=== PATIENT | female | born 1990 | race Caucasian/White ===

== ENCOUNTER → 2023-08-27 06:45 | Outpatient (REF) | payer BC, SELFPAY | LOC: EMG 06:45 | PROVIDERS: ATTENDING PHYSICIAN Physician Assistant Surgical; FAMILY PHYSICIAN Family Medicine | DX: R20.0 Anesthesia of skin (principal) | CPT/HCPCS: 95886; 95911 ==

== ENCOUNTER → 2024-03-06 06:34 | Outpatient (REF) | payer BC, SELFPAY ==
[2024-03-06 06:59] LABS: % Basophils 0.6 % (0-2); % Eosinophils 3.9 % (0-6); % Immature Granulocytes 0.1 % (0-0.5); % Lymphocytes 33.1 % (20.5-51.1); % Monocytes 7.7 % (1.7-9.3); % Neutrophils 54.6 % (42.2-75.2); Absolute Eosinophils 0.3 10^3/uL (0-0.7); Absolute Lymphocytes 2.4 10^3/uL (1.2-3.4); Absolute Monocytes 0.6 10^3/uL (0.1-0.6); Absolute Neutrophils 3.9 10^3/uL (1.4-6.5); Hematocrit 38.1 % (37.0-47.0); Hemoglobin 12.7 g/dL (12.0-16.0); Mean Corp Hgb Conc. 33.3 g/dL (33.0-37.0); Mean Corpuscular Hgb 31.2 pg (27.0-31.0); Mean Corpuscular Volume 93.6 fL (81.0-99.0); Mean Platelet Volume 10.5 fL (7.4-10.4); Nucleated Red Blood Cells % 0 %; Platelet Count 251 10^3/uL (130-400); Red Blood Cell Count 4.07 10^6/uL (4.20-5.40); Red Cell Dist. Width 12.3 % (11.5-14.5); White Blood Cell Count 7.1 10^3/uL (4.8-10.8)
[2024-03-06 07:28] LABS: ALT (SGPT) 14 U/L (0-35); AST (SGOT) 20 U/L (14-36); Alkaline Phosphatase 67 U/L (38-126); Blood Urea Nitrogen 9 mg/dl (7-17); Calcium 9.2 mg/dl (8.4-10.2); Carbon Dioxide 27 mmol/L (22-30); Chloride 105 mmol/L (98-107); Direct Bilirubin 0.2 mg/dl (0.0-0.4); Glucose 93 mg/dl (70-99); Iron 81 ug/dl (37-170); Potassium 4.3 mmol/L (3.5-5.1); Sodium 136 mmol/L (135-145); Total Bilirubin 0.4 mg/dl (0.2-1.3); Total Protein 7.1 g/dl (6.3-8.2); eGFR > 60.00
[2024-03-06 07:38] LABS: Percent Saturation 29 % (20-50); Total Iron Binding Capacity 278 ug/dl (265-497)
[2024-03-06 07:52] LABS: Erythrocyte Sed Rate 19 mm/hour (0-20)
[2024-03-06 08:35] LABS: Folate 10.1 ng/ml (2.76-20); Vitamin B12 600 pg/ml (239-931)
[2024-03-06 10:15] LABS: Vitamin D, 25-OH*** < 12.8 ng/mL (30-80)
[2024-03-06 20:19] LABS: Hepatitis B Surface Antigen Negative (Negative)
[2024-03-06 20:37] LABS: Hepatitis B Core Ab, Total Negative (Negative); Hepatitis B Surface Antibody Negative
[2024-03-08 18:50] LABS: Quantiferon Mitogen minus NIL 9.59 IU/mL; Quantiferon NIL 0.03 IU/mL; Quantiferon TB Gold Plus Negative (Negative)
== END ==
LOC: REG 06:34
PROVIDERS: ATTENDING PHYSICIAN Nurse Practitioner Family
DX: K50.00 Crohn's disease of small intestine without complications (principal)
CPT/HCPCS: 36415; 80048; 80076; 82306; 82607; 82728; 82746; 83540; 83550; 85025; 85652; 86140; 86480; 86704; 86706; 87340

== ENCOUNTER → 2024-04-07 13:50 | Outpatient (REF) | payer BC, SELFPAY | LOC: PAVMRI 13:50 | PROVIDERS: ATTENDING PHYSICIAN Nurse Practitioner Family | DX: K50.00 Crohn's disease of small intestine without complications (principal) | CPT/HCPCS: 74183; A9575 ==

== ENCOUNTER → 2024-06-06 06:26 | Outpatient (REF) | payer BC, SELFPAY | LOC: REG 06:26 | PROVIDERS: ATTENDING PHYSICIAN Nurse Practitioner Family; FAMILY PHYSICIAN Internal Medicine Gastroenterology | DX: K50.00 Crohn's disease of small intestine without complications (principal) | CPT/HCPCS: 83993 ==

== ENCOUNTER → 2024-06-30 06:16 | Day surgery (SDC) | payer BC, SELFPAY | LOC: GI 06:16 | PROVIDERS: ATTENDING PHYSICIAN Internal Medicine Gastroenterology | DX: K64.8 Other hemorrhoids (principal); K63.5 Polyp of colon; K50.819 Crohn's disease of both small and large intestine with unspecified complications | CPT/HCPCS: 45380; 88305 ==

== ENCOUNTER 2024-12-23 09:25 | Emergency (ER) | payer BC, SELFPAY ==
[2024-12-23 09:32] VITALS: BP 137/88
[2024-12-23 10:34] VITALS: BMI 35.9
--- NOTE | 2024-12-23 10:43 | ED.GENMED ---
History of Present Illness
General
Chief Complaint: Urinary Symptoms
Time Seen by Provider: 12/23/24 10:07
History of Present Illness
History of Present Illness:
Patient is a 34-year-old woman with history of kidney stone presenting to the emergency department urinary symptoms. She states that last night she had some pelvic pain and some dysuria. This morning she had some hematuria and noticed a small
clot. No vaginal bleeding or discharge. She has never had bleeding with her prior kidney stones but has had kidney stones as well as multiple urine infections. No lightheadedness dizziness. No back pain. No history of malignancy.
Past History
Past History
ED Past Medical History: GERD, Psychiatric (History of anxiety), Other (Kidney stones) and Other (History of Crohn's disease)
ED Past Surgical History: None
Social History
Tobacco: Former smoker
Alcohol: None
Drug: None
Personal:
Living: with family
Employment: Employed
Family History
Family History: Hypertension
Phy Exam
Physical Exam
Physical Exam:
GENERAL: in no acute distress
HEENT: normocephalic, extraocular movements intact, moist oral mucosa
NECK: normal inspection
RESPIRATORY: no respiratory distress, clear to auscultation bilaterally
CARDIOVASCULAR: regular rate and rhythm
ABDOMEN/: soft, non-distended, suprapubic tenderness, no rebound or guarding
EXTREMITIES: non-tender, no edema/swelling
NEUROLOGIC: awake and alert, moves all extremities
SKIN: warm
Course
Orders/Labs/Results
Orders:
Orders
12/23/24 10:37
UA Reflex to Culture [Urinalysis Reflex To Culture] Urgent
Date Specimen was Collected: 12/23/24
Time Specimen was Collected: 10:36
Urine Microscopic Reflex Cult Urgent
Urine Culture Urgent
LUANN Source: U
Specimen Description:
Date Specimen was Collected: 12/23/24
Time Specimen was Collected: 10:36
12/23/24 10:43
CT Abd/pelvis W Iv Cont Urgent
Comment:
Reason For Exam: hematuria
Ketorolac [Toradol] 15 mg IV NOW STA
Test Result ONCE
12/23/24 11:23
Basic Metabolic Panel Urgent
Complete Blood Count/With Diff Urgent
HCG, Serum Qualitative Screen Urgent
12/23/24 13:46
Nitrofurantoin Monohydrate [Macrobid] 100 mg PO NOW STA
Abnormal Lab Results
12/23/24 12/23/24
10:37 11:23
RBC 3.93 L 10^6/uL
(4.20-5.40)
Hct 36.2 L %
(37.0-47.0)
MCH 31.3 H pg
(27.0-31.0)
Absolute Neuts (auto) 6.7 H 10^3/uL
(1.4-6.5)
Lymphocytes % 20.3 L %
(20.5-51.1)
Ur Occult Blood Reflex 4+ A
(Negative)
Leukocyte Esterase Rfl 2+ A
(Negative)
Urine RBC 30-40 A /HPF
(0-2)
Urine WBC (Reflex) 30-40 A /HPF
(0-5)
Urine Bacteria (Reflex) Moderate A
(Negative)
Urine Albumin (Reflex) 1+ A
(Neg - Trace)
12/23/24 11:23
12/23/24 11:23
Vital Signs
Initial and Last Documented VS:
Initial Vital Signs
Temp Pulse Resp BP Pulse Ox
98.0 F 85 18 137/88 100
12/23/24 09:32 12/23/24 09:32 12/23/24 09:32 12/23/24 09:32 12/23/24 09:32
Last Documented Vital Signs
Temp Pulse Resp BP Pulse Ox
98.0 F 71 18 129/83 97
12/23/24 09:32 12/23/24 12:00 12/23/24 12:00 12/23/24 12:00 12/23/24 12:00
MDM/Problems Addressed
Differential Diagnosis Includes:
Patient is a 34-year-old female presenting to the emergency department with hematuria and pelvic pain. Vitals are well and exam does show suprapubic tenderness to palpation. Differential is broad but consists of kidney stone versus urine infection
versus mass. Will obtain blood work urine sample as well as CT scan. Will give Toradol and reassess.
*Critical Care Note
Total Time (30-74mins, 75-104mins- exclusive of procedures): Not Applicable
Update Note
Update Note:
On reevaluation patient is resting comfortably. Bladder scan was 20. She is able to urinate without any difficulty here. CT scan per my interpretation with no obvious stone. Per the official read there is no obstructive uropathy but she does have
few small renal cysts. Urine does appear contaminated. However given the patient has been having ongoing symptoms with prior urine infections we will treat with Macrobid. Strict return precautions given. Will discharge at this time.
ED Attending Note
-
Portions of this chart may have been created with voice recognition software.� Occasional wrong word or��sound alike� substitutions may have occurred due to the inherent limitations of voice recognition software.
Discharge Plan
Departure
Patient Disposition: Home (Routine Discharge)
Date of Disposition: 12/23/24
Time of Disposition: 13:45
Patient with high blood pressure during this ER visit?: No
Discharge Problem:
UTI (urinary tract infection)
Instructions: Urinary Tract Infection, Adult (DC)
Prescriptions:
New
nitrofurantoin monohyd/m-cryst [Macrobid] 100 mg capsule
100 mg PO Q12H 5 Days Qty: 10 0RF
No Action
pantoprazole 40 MG tablet,delayed release (DR/EC)
40 mg PO DAILY
cyanocobalamin (vitamin B-12) 1,000 MCG capsule
1,000 mcg PO DAILY
ondansetron 4 MG tablet,disintegrating
4 mg PO TIDPRN PRN (Reason: nausea) Qty: 15 0RF
acetaminophen [Tylenol] 325 mg Tablet
650 mg PO Q6H PRN (Reason: pain)
acetaminophen-codeine 300-30 mg Tablet
1 tab PO Q8H PRN (Reason: pain)
budesonide 3 mg Capsule,Delayed,Extend.Release
3 mg PO DAILY
Referrals:
Olvin Jc MD [Active] -
More Kwon MD [Family Provider] -
Activity Restrictions/Additional Instructions:
You were seen in the Emergency Department today for possible urine infection. We did start you on antibiotics. Please start taking the antibiotics tomorrow morning as we did give you your first dose today. Please follow-up with urology. If you
notice you are having worsening pain or difficulty peeing or have not urinated in more than 8 hours please immediately come back to the emergency department.
We would like for you to follow up with your primary care physician for further evaluation. If you experience fever, worsening of your symptoms, or develop any other new or concerning symptoms, please return to the Emergency Department immediately.
Please see the attached sheet for additional information.
Interventions
Interventions:
*General Assessment Last Done: 12/23/24 10:35
*Neglect/Abuse Screening Last Done: 12/23/24 10:35
ED- Fall Risk Assessment Last Done: 12/23/24 13:03
*ED COVID-19 Vaccine History Last Done: 12/23/24 10:35
ED-Female Genitourinary Assessment Last Done: 12/23/24 13:03
Discharge Date and Time
Print Language: [id number]
[2024-12-23 11:13] LABS: Urine Albumin 1+ (Neg - Trace); Urine Bilirubin Negative (Negative); Urine Character Clear (Clear); Urine Color Yellow; Urine Glucose Negative (Negative); Urine Ketone Negative (Negative); Urine Leukocyte 2+ (Negative); Urine Nitrite Negative (Negative); Urine Occult Blood 4+ (Negative); Urine Specific Gravity 1.005 (<1.030); Urine Urobilinogen Negative (Neg - 1+); Urine pH 6.5 (5.0-9.0)
[2024-12-23] MEDS: TORADOL 15 MG IV (11:28)
[2024-12-23 11:39] LABS: % Basophils 0.4 % (0-2); % Eosinophils 2.1 % (0-6); % Immature Granulocytes 0.3 % (0-0.5); % Lymphocytes 20.3 % (20.5-51.1); % Monocytes 4.8 % (1.7-9.3); % Neutrophils 72.1 % (42.2-75.2); Absolute Eosinophils 0.2 10^3/uL (0-0.7); Absolute Lymphocytes 1.9 10^3/uL (1.2-3.4); Absolute Monocytes 0.4 10^3/uL (0.1-0.6); Absolute Neutrophils 6.7 10^3/uL (1.4-6.5); Hematocrit 36.2 % (37.0-47.0); Hemoglobin 12.3 g/dL (12.0-16.0); Mean Corpuscular Hgb 31.3 pg (27.0-31.0); Mean Corpuscular Volume 92.1 fL (81.0-99.0); Nucleated Red Blood Cells % 0 %; Platelet Count 244 10^3/uL (130-400); Red Blood Cell Count 3.93 10^6/uL (4.20-5.40); Red Cell Dist. Width 12.4 % (11.5-14.5); White Blood Cell Count 9.3 10^3/uL (4.8-10.8)
[2024-12-23 11:49] LABS: HCG, Serum Qualitative Screen Negative
[2024-12-23 11:52] LABS: Blood Urea Nitrogen 9 mg/dl (7-17); Calcium 8.9 mg/dl (8.4-10.2); Carbon Dioxide 28 mmol/L (22-30); Chloride 104 mmol/L (98-107); Estimated Creatinine Clearance > 125 ml/min; Glucose 86 mg/dl (70-99); Potassium 4.6 mmol/L (3.5-5.1); Sodium 137 mmol/L (135-145); eGFR > 60.00
[2024-12-23 12:00] VITALS: BP 129/83
[2024-12-23 12:12] LABS: Urine Mucus Few; Urine Squamous Cell >30 /LPF (Few)
[2024-12-23 12:13] LABS: Urine Red Blood Cell 30-40 /HPF (0-2)
[2024-12-23 12:14] LABS: Urine Bacteria Moderate (Negative); Urine White Cell 30-40 /HPF (0-5)
[2024-12-23] MEDS: MACROBID 100 MG PO (14:02)
== END 2024-12-23 13:50 | disposition home or self-care (01) ==
LOC: EMR 09:25
PROVIDERS: EMERGENCY PHYSICIAN Student in an Organized Health Care Education/Training Program; FAMILY PHYSICIAN Family Medicine
DX: N39.0 Urinary tract infection, site not specified (principal); R10.2 Pelvic and perineal pain; N28.1 Cyst of kidney, acquired; K21.9 Gastro-esophageal reflux disease without esophagitis; F41.9 Anxiety disorder, unspecified; K50.90 Crohn's disease, unspecified, without complications; Z87.442 Personal history of urinary calculi; Z87.891 Personal history of nicotine dependence; Z88.5 Allergy status to narcotic agent
CPT/HCPCS: 99284; 96374; 51798; 74177; 80048; 81003; 81015; 84703; 85025; 87086; Q9967

== ENCOUNTER → 2025-03-02 12:54 | Outpatient (REF) | payer BC, SELFPAY | LOC: RAD 12:54 | PROVIDERS: ATTENDING PHYSICIAN Internal Medicine; FAMILY PHYSICIAN Family Medicine | DX: M25.511 Pain in right shoulder (principal) | CPT/HCPCS: 73030 ==

== ENCOUNTER → 2025-03-19 06:40 | Outpatient (REF) | payer BC, SELFPAY ==
[2025-03-19 08:29] LABS: ALT (SGPT) 38 U/L (0-35); AST (SGOT) 28 U/L (14-36); Albumin 4.3 g/dl (3.5-5.0); Alkaline Phosphatase 57 U/L (38-126); Direct Bilirubin 0.1 mg/dl (0.0-0.4); Iron 107 ug/dl (37-170); Total Bilirubin 0.5 mg/dl (0.2-1.3); Total Protein 7.2 g/dl (6.3-8.2)
[2025-03-19 08:40] LABS: Hepatitis B Surface Antigen Negative (Negative)
[2025-03-19 08:47] LABS: Percent Saturation 39 % (20-50); Total Iron Binding Capacity 274 ug/dl (265-497)
[2025-03-19 08:58] LABS: Hepatitis B Core Ab, Total Negative (Negative)
[2025-03-19 09:17] LABS: Vitamin D, 25-OH*** 15.2 ng/mL (30-80)
[2025-03-19 10:10] LABS: Erythrocyte Sed Rate 24 mm/hour (0-20)
[2025-03-19 11:30] LABS: Hepatitis B Surface Antibody Indeterminate
[2025-03-21 12:02] LABS: Quantiferon Mitogen minus NIL 9.94 IU/mL; Quantiferon NIL 0.06 IU/mL; Quantiferon TB Gold Plus Negative (Negative)
== END ==
LOC: REG 06:40
PROVIDERS: ATTENDING PHYSICIAN Internal Medicine Gastroenterology
DX: K50.00 Crohn's disease of small intestine without complications (principal)
CPT/HCPCS: 36415; 80076; 82306; 83540; 83550; 85652; 86480; 86704; 86706; 87340

== ENCOUNTER 2025-04-06 06:18 | Outpatient (RCR) | payer BC, SELFPAY | END 2025-04-06 23:59 | disposition home or self-care (01) | LOC: RPT 06:18 | PROVIDERS: ATTENDING PHYSICIAN Psychiatry & Neurology Neurology | DX: M54.2 Cervicalgia (principal); M54.12 Radiculopathy, cervical region; Z73.6 Limitation of activities due to disability; M62.81 Muscle weakness (generalized) | CPT/HCPCS: 97110; 97162 ==

== ENCOUNTER 2025-05-02 10:16 | Outpatient (RCR) | payer BC, SELFPAY | END 2025-05-02 23:59 | disposition home or self-care (01) | LOC: RPT 10:16 | PROVIDERS: ATTENDING PHYSICIAN Psychiatry & Neurology Neurology | DX: M54.2 Cervicalgia (principal); M54.12 Radiculopathy, cervical region; Z73.6 Limitation of activities due to disability; M62.81 Muscle weakness (generalized) | CPT/HCPCS: 97010; 97110; 97112; 97140 ==

== ENCOUNTER 2025-05-31 11:30 | Outpatient (RCR) | payer BC, SELFPAY | END 2025-05-31 23:59 | disposition home or self-care (01) | LOC: RPT 11:30 | PROVIDERS: ATTENDING PHYSICIAN Psychiatry & Neurology Neurology | DX: M54.2 Cervicalgia (principal); M54.12 Radiculopathy, cervical region; Z73.6 Limitation of activities due to disability; M62.81 Muscle weakness (generalized) | CPT/HCPCS: 97110; 97112 ==